=== PATIENT | female | born 1945 | race African-American/Black ===

== ENCOUNTER 2021-08-16 17:49 | Observation (INO) | payer OTHER ==
[2021-08-16] MEDS ORDERED: Ringers Lactate 1,000 ML IV ONE (18:30)
[2021-08-16 18:32] LABS: Absolute Lymphocytes (CBC) 0.9 K/uL (0.7-4.9); Hematocrit 38.6 % (36.0-45.0); Lymphocytes % 13.5 % (15.3-44.8); MPV 10.6 fL (7.6-11.3); RBC Red Blood Cell Count 4.16 M/uL (3.86-4.86)
[2021-08-16 18:45] LABS: Potassium 4.3 mmol/L (3.5-5.1)
--- NOTE | 2021-08-16 18:58 | EDPHYS ---
Physician Documentation [facility] Name: Linda Leone Age: 75 yrs Sex: Female : 1945 Arrival Date: 08/16/2021 Time: 17:54 Bed 7 Private MD: ED Physician Wilian Shafer HPI: 08/16 18:06 This 75 yrs old Black Female presents to ER via Unassigned with complaints of Low Blood ms3 Sugar. 18:06 The patient or guardian reports hypoglycemia, that was potentially precipitated by Fall ms3 out of bed last night. Onset: The symptoms/episode began/occurred acutely, last night. Associated signs and symptoms: Pertinent negatives: decreased urine output, diaphoresis, nausea, urinary incontinence, vomiting. 75-year-old female presents via [facility] for hypoglycemia. EMS states on their arrival patient's glucose was 47 and EP no pharyngeal exam which was made an oral glucose was administered. Patient's glucose remained in the 40s and the decision was made to transport patient to the hospital. Patient states she fell out of bed last night and was unable to get up today. Patient denies loss of consciousness or striking her head. Patient denies pain at this time. Patient denies alleviating or inciting factors.. Historical: - Allergies: 18:10 No Known Allergies; vg1 - Home Meds: 18:10 Metformin Oral [Active]; Levemir [Active]; vg1 - PMHx: 18:10 Diabetes mellitus; Hypertensive disorder; vg1 - Immunization history:: Client reports receiving the 2nd dose of the Covid vaccine. - Social history:: Smoking status: Patient denies any tobacco usage or history of. ROS: 18:06 Constitutional: Negative for fever, and chills. ENT: Negative for injury, pain, and ms3 discharge, Neck: Negative for injury, pain, and swelling, Cardiovascular: Negative for chest pain, and palpitations. Respiratory: Negative for shortness of breath, cough, wheezing, and pleuritic chest pain, Abdomen/GI: Negative for abdominal pain, nausea, vomiting, diarrhea, and constipation, Back: Negative for injury and pain, : Negative for injury, bleeding, discharge, and swelling, Skin: Negative for injury, rash, and discoloration, Neuro: Negative for headache, weakness, numbness, tingling. Allergy/Immunology: Negative for hives, rash, and allergies, Hematologic/Lymphatic: Negative for swollen nodes, abnormal bleeding, and unusual bruising. Exam: 18:06 Constitutional: This is a well developed, well nourished patient who is awake, alert, ms3 and in no acute distress. Head/Face: Normocephalic, atraumatic. Eyes: Pupils equal round and reactive to light, extra-ocular motions intact. Lids and lashes normal. Conjunctiva and sclera are non-icteric and not injected. Periorbital areas with no swelling, redness, or edema. Neck: Trachea midline, no cervical lymphadenopathy. Supple, full range of motion without nuchal rigidity, or vertebral point tenderness. No Meningismus. Chest/axilla: Normal chest wall appearance and motion. Nontender with no deformity. Respiratory: Lungs have equal breath sounds bilaterally, clear to auscultation and percussion. No rales, rhonchi or wheezes noted. No increased work of breathing, no retractions or nasal flaring. Abdomen/GI: Soft, non-tender, with normal bowel sounds. No distension or tympany. No guarding or rebound. No evidence of tenderness throughout. 18:06 Cardiovascular: Rate: tachycardic, Rhythm: regular, Heart sounds: normal. Vital Signs: 17:42 BP 147 / 102; Pulse 93; Resp 20; Temp 97.6; Pulse Ox 97% on R/A; Weight 49.9 kg; Height vg1 5 ft. 0 in. (152.40 cm); Pain 0/10; 18:20 BP 141 / 96; Pulse 90; Resp 18; Pulse Ox 98% ; vg1 19:30 BP 142 / 111; Pulse 96; Resp 19 S; Pulse Ox 100% on R/A; as6 21:30 BP 126 / 86; Pulse 93; Pulse Ox 100% on R/A; ll3 22:30 BP 118 / 76; Pulse 87; Pulse Ox 100% on R/A; ll3 17:42 Body Mass Index 21.48 (49.90 kg, 152.40 cm) vg1 MDM: 18:05 Patient medically screened. ms3 18:12 ED course: Patient declines CT scan of head and neck. Denies head pain, LOC, or ms3 striking her head. Declines CT Cervical spine- denies neck pain.. 18:55 Differential diagnosis: hypoglycemic episode, Fall, Electrolyte abnormality. Data ms3 reviewed: vital signs, nurses notes, lab test result(s). Counseling: I had a detailed discussion with the patient and/or guardian regarding: the historical points, exam findings, and any diagnostic results supporting the discharge/admit diagnosis, lab results, to return to the emergency department if symptoms worsen or persist or if there are any questions or concerns that arise at home. ED course: Patient states that she would like to be discharged at this time. Discussed with patient need to follow-up with her primary care physician. Patient understands agrees with plan. All questions were answered. Return precautions discussed include worsening symptoms, or any other concerns.. 19:13 ED course: Discussed case with [employer] Letty and she accepts patient as observation. ms3 Discussed plan with patient. Patient understands/ agrees with plan.. 08/16 18:05 Order name: CK; Complete Time: 18:54 ms3 08/16 18:05 Order name: BMP; Complete Time: 18:54 ms3 08/16 18:05 Order name: CBC with Diff; Complete Time: 18:45 ms3 08/16 18:08 Order name: SARS-COV-2 RT PCR (Document "Date of Onset" if Symptomatic); Complete Time: em1 19:19 08/16 19:19 Interpretation: SARSCOV2 RT PCR NEGATIVE. ms3 08/16 18:15 Order name: Glucose, Ancillary Testing; Complete Time: 18:45 EDMS 08/16 19:11 Order name: Glucose, Ancillary Testing; Complete Time: 19:19 EDMS 08/16 21:04 Interpretation: GLUC,ANCIL 81. sb3 Administered Medications: 18:37 Drug: Lactated Ringers Solution 1000 ml Route: IV; Rate: 1000 ml/hr; Site: right ap3 antecubital; Point of Care Testing: Blood Glucose: 19:02 Blood Glucose: 81 mg/dL; aa5 Ranges: Critical Glucose Levels:Adult <50 mg/dl or >400 mg/dl <40 mg/dl or >180 mg/dl Disposition Summary: 08/16/21 19:11 Hospitalization Ordered Hospitalization Status: Observation ms3 Provider: Tu Gutierrez ms3 Condition: Stable(08/16/21 19:11) ms3 Problem: new ms3 Symptoms: have improved ms3 Bed/Room Type: Standard ms3 [facility]08/16/21 21:04) mw Room Assignment: 270-(08/16/21 21:04) mw Diagnosis - Hypoglycemia, unspecified(08/16/21 19:11) ms3 - Essential (primary) hypertension(08/16/21 19:11) ms3 - Fall from bed, initial encounter(08/16/21 19:11) ms3 Forms: - Medication Reconciliation Form ms3 - SBAR form ms3 Signatures: Dispatcher [employer] EDMS María Murray RN RN Shonna Eden RN RN [email or web address] Sun Perez RN RN vg1 Wilian Shafer DO DO ms3 Faye Alston PA PA sb3 Corrections: (The following items were deleted from the chart) 18:11 18:10 PMHx: History of urinary tract infection; vg1 vg1 19:08 18:57 Home ms3 ms3 19:08 18:57 Stable ms3 ms3 19:08 18:57 Hypoglycemia, unspecified ms3 ms3 19:08 18:57 Fall from bed, initial encounter ms3 ms3 19:08 18:57 Essential (primary) hypertension ms3 ms3 21:04 19:11 Telemetry/MedSurg (observation) ms3 mw 21:04 19:11 ms3 mw
--- NOTE | 2021-08-16 18:58 | ER ---
Nurse's Notes [facility] Name: Linda Leone Age: 75 yrs Sex: Female : 1945 Arrival Date: 08/16/2021 Time: 17:54 Bed 7 Private MD: Diagnosis: Hypoglycemia, unspecified;Essential (primary) hypertension;Fall from bed, initial encounter Presentation: 08/16 17:42 Chief complaint: EMS states: Fell out of bed last night; neighbors were concerned of vg1 not being able to get a hold of pt so called PD; PD went to pt home and found pt on bedroom floor; EMS checked BG, results of 47, gave pt peanutbutter and jelly sandwich, pt took one bit and ate one cracker and was given half of oral glucose. No change in BG. 17:42 Coronavirus screen: Vaccine status: Patient reports receiving the 2nd dose of the covid vg1 vaccine. Client denies travel out of the [place] in the last 14 days. Ebola Screen: Patient negative for fever greater than or equal to 101.5 degrees Fahrenheit, and additional compatible Ebola Virus Disease symptoms. Initial Sepsis Screen: Does the patient meet any 2 criteria? No. Patient's initial sepsis screen is negative. Does the patient have a suspected source of infection? No. Patient's initial sepsis screen is negative. Risk Assessment: Do you want to hurt yourself or someone else? Patient reports no desire to harm self or others. Onset of symptoms was August 16, 2021. 17:42 Method Of Arrival: EMS: [facility] 17:42 Acuity: KAM 3 vg1 Triage Assessment: 17:42 General: Appears in no apparent distress. comfortable, Behavior is calm, cooperative. vg1 Pain: Denies pain. EENT: No signs and/or symptoms were reported regarding the EENT system. Neuro: Level of Consciousness is awake, alert, obeys commands, Oriented to person, place, time, situation. Cardiovascular: Patient's skin is warm and dry. Respiratory: Airway is patent Respiratory effort is even, unlabored. GI: No signs and/or symptoms were reported involving the gastrointestinal system. : No signs and/or symptoms were reported regarding the genitourinary system. Derm: Skin is intact, is healthy with good turgor. Musculoskeletal: Circulation, motion, and sensation intact. Historical: - Allergies: 18:10 No Known Allergies; vg1 - Home Meds: 18:10 Metformin Oral [Active]; Levemir [Active]; vg1 - PMHx: 18:10 Diabetes mellitus; Hypertensive disorder; vg1 - Immunization history:: Client reports receiving the 2nd dose of the Covid vaccine. - Social history:: Smoking status: Patient denies any tobacco usage or history of. Screenin:45 Abuse screen: Denies threats or abuse. Nutritional screening: No deficits noted. vg1 Tuberculosis screening: No symptoms or risk factors identified. Fall Risk Fall in past 12 months (25 points). No secondary diagnosis (0 pts). IV access (20 points). Ambulatory Aid- None/Bed Rest/Nurse Assist (0 pts). Gait- Normal/Bed Rest/Wheelchair (0 pts) Mental Status- Oriented to own ability (0 pts). Total Raphael Fall Scale indicates High Risk Score (45 or more points). Fall prevention measures have been instituted. Side Rails Up X 2 Placed Close to Nursing Station. Assessment: 17:45 Reassessment: SEE TRIAGE. vg1 19:28 General: Appears in no apparent distress. Behavior is calm, cooperative. General: pt as6 has no complaint or concerns at this time. pt able to ambulate to bedside commode with minimal assistance. pt denies pain "I feel totally normal right now. I feel fine" . Neuro: Denies weakness dizziness. 22:41 Reassessment: Patient and/or family updated on plan of care and expected duration. Pain ll3 level reassessed. Patient is alert, oriented x 3, equal unlabored respirations, skin warm/dry/pink. Patient denies pain at this time. Vital Signs: 17:42 BP 147 / 102; Pulse 93; Resp 20; Temp 97.6; Pulse Ox 97% on R/A; Weight 49.9 kg; Height vg1 5 ft. 0 in. (152.40 cm); Pain 0/10; 18:20 BP 141 / 96; Pulse 90; Resp 18; Pulse Ox 98% ; vg1 19:30 BP 142 / 111; Pulse 96; Resp 19 S; Pulse Ox 100% on R/A; as6 21:30 BP 126 / 86; Pulse 93; Pulse Ox 100% on R/A; ll3 22:30 BP 118 / 76; Pulse 87; Pulse Ox 100% on R/A; ll3 17:42 Body Mass Index 21.48 (49.90 kg, 152.40 cm) vg1 ED Course: 17:42 Arm band placed on. vg1 17:45 Patient has correct armband on for positive identification. Placed in gown. Bed in low vg1 position. Call light in reach. Side rails up X2. 17:50 Inserted saline lock: 22 gauge in right antecubital area, using aseptic technique. vg1 ,using aseptic technique. completed by Shonna WINN Blood collected. 17:54 Patient arrived in ED. vg1 17:58 Wilian Shafer DO is Attending Physician. ms3 18:04 Sun Perez, PA is Primary Nurse. vg1 18:10 Triage completed. vg1 19:07 Primary Nurse role handed off by Sun Perez RN cs9 19:08 Domingo Cordoba, PA is Primary Nurse. as6 19:09 Tu Gutierrez is Hospitalizing Provider. ms3 19:59 Assisted to bedside commode. as6 22:41 No provider procedures requiring assistance completed. Patient admitted, IV remains in ll3 place. No redness/swelling at site. Administered Medications: 18:37 Drug: Lactated Ringers Solution 1000 ml Route: IV; Rate: 1000 ml/hr; Site: right ap3 antecubital; Point of Care Testing: Blood Glucose: 19:02 Blood Glucose: 81 mg/dL; aa5 Ranges: Outcome: 18:57 Discharge ordered by MD. ms3 19:11 Decision to Hospitalize by Provider. ms3 22:41 Admitted to L \\T\\ D, accompanied by tech, via wheelchair, room 201, with chart, Report ll3 called to Receiving nurse 22:41 Condition: stable 22:41 Discharge instructions given to patient, Instructed on the need for admit, Demonstrated understanding of instructions. 22:42 Patient left the ED. ll3 Signatures: Nancy Hernandez RN RN aa5 Shonna Eden RN RN ap3 Sun Perez RN RN vg1 Wilian Shafer DO DO ms3 Mary Lou Ocampo cs9 Domingo Cordoba RN RN as6 Gabriela Fonseca RN RN ll3 Corrections: (The following items were deleted from the chart) 18:11 18:10 PMHx: History of urinary tract infection; vg1 vg1
--- NOTE | 2021-08-16 20:27 | P.HP ---
Certification for Inpatient Patient admitted to: Observation With expected LOS: <2 Midnights Patient will require the following post-hospital care: None Practitioner: I am a practitioner with admitting privileges, knowledge of patient current condition, hospital course, and medical plan of care. Services: Services provided to patient in accordance with Admission requirements found in Title 42 Section 412.3 of the Code of Federal Regulations Patient History Date of Service: 08/16/21 Reason for admission: Hypoglycemia History of Present Illness: Patient is a 68 type II diabetic insulin-dependent who presented to the ED via [facility] for hypoglycemia. EMS states on their arrival patient's glucose was 47 and they gave her peanut butter and jelly sandwich and oral glucose. Patient's glucose remained in the 40s and the decision was made to transport patient to the hospital. Patient states she was starting to feel very weak and could not get out of bed so she held a pillow beneath her self and rolled out of bed onto the floor. However she was unable to get up. Neighbors got concerned and called EMS. Patient denies loss of consciousness or striking her head. Patient reports that her blood sugars usually in the 100s. She reports she took her medication as usual last night and ate as she usually does. Upon arrival to the ED, patient's glucose was in the 80s. They gave patient food and juice. Her blood sugar went up to 99. They were planning to discharge her but checked her sugar one more time and was back in the 80s. All the labs were unremarkable. Patient denies any pain at this time ED provider wishes to admit patient for further observation and treatment of hypoglycemia. Home medications list reviewed: Yes - Past Medical/Surgical History Diabetic: Yes -: Type 2 Diabetes Mellitus- Insulin Dependent -: Primary Hypertension -: Hysterectomy Psychosocial/ Personal History: Patient lives at home by herself. - Family History Family History: Reviewed- Non-Contributory - Social History Smoking Status: Former smoker Alcohol use: No CD- Drugs: No Place of Residence: Home Review of Systems 10-point ROS is otherwise unremarkable General: Weakness Physical Examination - Physical Exam General: Alert, In no apparent distress HEENT: Atraumatic, PERRLA, EOMI, Sclerae nonicteric Neck: Supple, 2+ carotid pulse no bruit, No LAD, Without JVD or thyroid abnormality Respiratory: Clear to auscultation bilaterally, Normal air movement Cardiovascular: Regular rate/rhythm, Normal S1 S2 Gastrointestinal: Normal bowel sounds, No tenderness Musculoskeletal: No tenderness Integumentary: No rashes Neurological: Normal speech, Normal strength at 5/5 x4 extr, Normal tone, Normal affect - Studies Laboratory Data (last 24 hrs) 08/16/21 17:50: WBC 7.00, Hgb 12.6, Hct 38.6, Plt Count 216 08/16/21 17:50: Sodium 141, Potassium 4.3, BUN 14, Creatinine 0.87, Glucose 99 Assessment and Plan - Problems (Diagnosis) (1) Hypoglycemia associated with type 2 diabetes mellitus Current Visit: Yes Status: Acute (2) Diabetes mellitus type 2, insulin dependent Current Visit: Yes Status: Chronic (3) Hypertension Current Visit: Yes Status: Chronic Qualifiers: Hypertension type: primary hypertension Qualified Code(s): I10 - Essential (primary) hypertension - Plan -Patient reports taking Metformin and Levemir daily and typical blood sugars for her are in the 170s. -Patient's blood sugar has increased slowly throughout her stay in the ED. We will continue to monitor. -We will check sugar every 6 hours with a mild sliding scale as necessary -We will encourage patient to eat. -Patient denies any other chronic health problems or any pain at this time. DVT PPx: Lovenox Code: Full Discharge Plan: Home Plan to discharge in: 24 Hours - Advance Directives Does patient have a Living Will: No Does patient have a Durable POA for Healthcare: No - Code Status/Comfort Care Code Status Assessed: Yes (Full) Critical Care: No Time Spent Managing Pts Care (In Minutes): 70
[2021-08-16 22:56] VITALS: O2SAT 100
[2021-08-17] MEDS: INSULIN -REGULAR HUMAN 50 UNIT/0.5 ML ML SQ SCH ×3 (04:37→11:30)
[2021-08-17] MEDS ORDERED: ACETAMINOPHEN 500 MG TAB PO PRN (04:37)
[2021-08-17] MEDS ORDERED: ONDANSETRON 4 MG/2 ML VIAL IV PRN (04:37)
[2021-08-17] MEDS ORDERED: SIMETHICONE 125 MG TAB PO PRN (04:37)
[2021-08-17 05:38] LABS: Albumin 3.5 g/dL (3.4-5.0); Bilirubin Total 0.2 mg/dL (0.2-1.0); Potassium 4.1 mmol/L (3.5-5.1); Protein, Total 7.6 g/dL (6.4-8.2); Thyroid Stimulating Hormone 1.39 uIU/mL (0.360-3.740)
[2021-08-17] MEDS ORDERED: METFORMIN HCL 500 MG TAB PO SCH (08:00)
[2021-08-17] MEDS ORDERED: INSULIN GLARGINE 100 UNIT/ML SQ SCH (09:00)
[2021-08-17] MEDS ORDERED: ENOXAPARIN 40 MG/0.4 ML SQ SCH (09:00)
--- NOTE | 2021-08-17 09:13 | P.DS ---
Admission Date: 08/16/21 Discharge Date: 08/17/21 Disposition: DC HOME/HOME HEALTH CARE Discharge Condition: FAIR Reason for Admission: Hypoglycemia - Problems (1) Hypoglycemia associated with type 2 diabetes mellitus Status: Acute (2) Hypertension Status: Chronic Qualifiers: Hypertension type: primary hypertension Qualified Code(s): I10 - Essential (primary) hypertension Brief History of Present Illness: Patient is a 68 type II diabetic insulin-dependent who presented to the ED via [facility] for hypoglycemia. Patient reported to be hypoglycemic with a glucose of 47and they gave her peanut butter and jelly sandwich and oral glucose. Patient's glucose remained in the 40s and the decision was made to transport patient to the hospital. Patient was unable to get up from bed due to weakness. Neighbors got concerned and called EMS. Patient denied loss of consciousness. Patient reports that her blood sugars usually in the 100s. She reports she took her medication as usual the night before and ate as she usually does. Upon arrival to the ED, patient's glucose was in the 80s. They gave patient food and juice. Her blood sugar went up to 99. They were planning to discharge her but checked her sugar one more time and was back in the 80s. All the labs were unremarkable. She was admitted for further observation and treatment of hypoglycemia. Hospital Course: Patient placed under observation fingerstick glucose monitoring. Her blood sugar was stable during the hospital stay. Patient is eating well and currently asymptomatic. She has been ambulatory. Vitals are stable, patient is stable for discharge. She was informed not to give herself insulin until her blood sugar is greater than 200. Her insulin dose has also been decreased to half. Metformin is continued on discharge. Vital Signs/Physical Exam: Temp Pulse Resp BP Pulse Ox 97.8 F 80 17 127/65 96 08/17/21 08:00 08/17/21 08:00 08/17/21 08:00 08/17/21 08:00 08/17/21 08:00 General: Alert, In no apparent distress, Oriented x3 HEENT: Mucous membr. moist/pink Neck: Supple, JVD not distended Respiratory: Clear to auscultation bilaterally, Normal air movement Cardiovascular: No edema, Regular rate/rhythm, Normal S1 S2 Gastrointestinal: Soft and benign, Non-distended, No tenderness Musculoskeletal: No swelling Integumentary: No rashes, No erythema Neurological: Normal speech, Normal strength at 5/5 x4 extr, Cranial nerves 3-12 intact Laboratory Data at Discharge: WBC 7.00 K/uL (4.3-10.9) 08/16/21 17:50 Hgb 12.6 g/dL (12.0-15.0) 08/16/21 17:50 Hct 38.6 % (36.0-45.0) 08/16/21 17:50 Plt Count 216 K/uL (152-406) 08/16/21 17:50 Sodium 141 mmol/L (136-145) 08/17/21 04:52 Potassium 4.1 mmol/L (3.5-5.1) 08/17/21 04:52 BUN 13 mg/dL (7-18) 08/17/21 04:52 Creatinine 0.84 mg/dL (0.55-1.3) 08/17/21 04:52 Glucose 95 mg/dL (74-106) 08/17/21 04:52 Total Bilirubin 0.2 mg/dL (0.2-1.0) 08/17/21 04:52 AST 13 U/L (15-37) L 08/17/21 04:52 ALT 13 U/L (12-78) 08/17/21 04:52 Alkaline Phosphatase 76 U/L (45-117) 08/17/21 04:52 Triglycerides 146 mg/dL (<150) 08/17/21 04:52 Cholesterol 188 mg/dL (<200) 08/17/21 04:52 HDL Cholesterol 65 mg/dL (40-60) H 08/17/21 04:52 Cholesterol/HDL Ratio 2.89 08/17/21 04:52 Home Medications: Insulin Detemir [Levemir Flextouch] 35 unit SQ DAILY #10 ml 08/17/21 Metformin HCl [Glucophage*] 500 mg PO BIDWM 08/17/21 Pravastatin [Pravachol*] 40 mg PO BEDTIME 08/17/21 New Medications: Insulin Detemir [Levemir Flextouch] 35 unit SQ DAILY #10 ml Physician Discharge Instructions: Please check your blood sugar every morning. Do not take insulin until your blood sugar is greater than 200 and take half of your insulin dose for now. Diet: ADA Activity: Fall precautions Followup: NONE,NONE [Primary Care Provider] - 2-3 Days
[2021-08-17 14:04] VITALS: BP 141/73; TEMP 98.5
== END 2021-08-17 14:55 | disposition home or self-care (01) ==
LOC: ER 17:49 → ERHOLD 19:56 → INTOOBSV 19:56 → 2ND-WC 21:51
PROVIDERS: ADMIT Internal Medicine; ATTEND Internal Medicine
DX: E11.649 Type 2 diabetes mellitus with hypoglycemia without coma (principal); I10 Essential (primary) hypertension; Z79.4 Long term (current) use of insulin; Z87.891 Personal history of nicotine dependence; Z20.822 Contact with and (suspected) exposure to COVID-19
CPT/HCPCS: 36415; 80048; 80053; 80061; 82550; 82947; 83036; 84439; 84443; 85025; 99285; G0378; J1650; J7120; U0003

== ENCOUNTER 2021-08-19 14:45 | Inpatient (IN) | payer OTHER ==
[2021-08-19] MEDS ORDERED: D10W 250 ML IV ONE (15:56)
[2021-08-19 16:13] LABS: Absolute Lymphocytes (CBC) 0.9 K/uL (0.7-4.9); Hematocrit 35.5 % (36.0-45.0); Lymphocytes % 12.9 % (15.3-44.8); MPV 10.1 fL (7.6-11.3)
[2021-08-19 16:29] LABS: ALT/SGPT 18 U/L (12-78); AST/SGOT 19 U/L (15-37); Albumin 3.7 g/dL (3.4-5.0); Alkaline Phosphatase 74 U/L (45-117); BUN Blood Urea Nitrogen 15 mg/dL (7-18); Bicarbonate 30 mmol/L (21-32); Bilirubin Direct < 0.1 mg/dL (0-0.2); Bilirubin Total 0.3 mg/dL (0.2-1.0); Glucose Level 92 mg/dL (74-106); Potassium 3.8 mmol/L (3.5-5.1); Protein, Total 8.1 g/dL (6.4-8.2); Sodium Level 141 mmol/L (136-145)
--- NOTE | 2021-08-19 17:19 | RAD REPORT ---
EXAM DESCRIPTION: RAD - Chest Single View - 08/19/2021 4:53 pm CLINICAL HISTORY: weakness COMPARISON: No comparisons FINDINGS: Lines: None. Lungs: No evidence of edema or pneumonia. Pleural: No significant pleural effusions or pneumothorax. Cardiac: The heart size is within normal limits. Bones: No acute fractures. Other: IMPRESSION: No acute cardiopulmonary disease.
--- NOTE | 2021-08-19 17:33 | EDPHYS ---
Physician Documentation [facility] Name: Linda Leone Age: 75 yrs Sex: Female : 1945 Arrival Date: 08/19/2021 Time: 14:46 Bed 3 Private MD: ED Physician Artemio Minor HPI: 08/19 15:06 This 75 yrs old Black Female presents to ER via EMS with complaints of Altered Mental jmm Status, Low Blood Sugar. 15:06 The patient presents with confusion, decreased mental status, slurred speech. Onset: jmm The symptoms/episode began/occurred today. Possible causes: low blood sugar, the patient uses insulin, the patient takes and oral hypoglycemic. Associated signs and symptoms: Pertinent negatives: abdominal pain, chest pain, shortness of breath. Current symptoms: In the emergency department the patient's symptoms have improved, mildly, is more alert, is less confused. Patient's baseline: Neuro: alert and fully oriented, Motor: no deficits. This is a 75 year old female with a history of dm, htn that presents to the ED with confusion, slurred speech. BGL low at home. Takes insulin and metoformin. . Historical: - Allergies: 14:49 No Known Allergies; ll1 - Home Meds: 15:23 levemir 35 unit daily [Active]; metformin 500 mg oral TG24 2 times per day [Active]; jl7 pravastatin 40 mg oral tab 1 tab once daily [Active]; - PMHx: 14:49 diabetes mellitus; Hypertensive disorder; ll1 - Immunization history:: Client reports receiving the 2nd dose of the Covid vaccine. - Social history:: Smoking status: Patient denies any tobacco usage or history of. ROS: 15:06 Constitutional: Negative for fever, chills, and weight loss, Cardiovascular: Negative jmm for chest pain, palpitations, and edema, Respiratory: Negative for shortness of breath, cough, wheezing, and pleuritic chest pain. 15:06 Neuro: Positive for weakness. 15:06 All other systems are negative. Exam: 15:06 Head/Face: atraumatic. Eyes: EOMI, no conjunctival erythema appreciated ENT: Moist jmm Mucus Membranes Neck: Trachea midline, Supple Chest/axilla: Normal chest wall appearance and motion. Cardiovascular: Regular rate and rhythm. No edema appreciated Respiratory: Normal respirations, no respiratory distress appreciated Abdomen/GI: Non distended, soft Back: Normal ROM Skin: General appearance color normal 15:06 Constitutional: The patient appears in no acute distress, alert, awake. 15:06 Musculoskeletal/extremity: ROM: intact in all extremities. 15:06 Skin: Appearance: Color: normal in color. 15:06 Neuro: Cranial nerves: Speech is slurred, Motor: is normal. 15:06 Psych: Behavior/mood is pleasant, cooperative. Vital Signs: 15:20 BP 195 / 97; Pulse 86; Resp 15; Temp 97.8; Pulse Ox 100% on R/A; jl7 15:23 BP 161 / 101; Pulse 81; Resp 15; Pulse Ox 100% ; jl7 15:50 Weight 45.36 kg (R); Height 5 ft. 2 in. (157.48 cm); jl7 16:15 BP 138 / 81; Pulse 84; Resp 16; Pulse Ox 100% ; jl7 17:00 BP 146 / 124; Pulse 79; Resp 17; Pulse Ox 100% ; jl7 19:00 BP 146 / 113; Pulse 108; Resp 15; Pulse Ox 100% ; jl7 20:44 BP 131 / 88; Pulse 99; Resp 16; Pulse Ox 100% on R/A; 5 15:50 Body Mass Index 18.29 (45.36 kg, 157.48 cm) jl7 19:00 pt moving jl7 MDM: 15:15 Patient medically screened. [facility] 17:31 Data reviewed: vital signs, nurses notes. Counseling: I had a detailed discussion with natalia the patient and/or guardian regarding: the historical points, exam findings, and any diagnostic results supporting the discharge/admit diagnosis, lab results, the need for further work-up and treatment in the hospital. 08/19 15:06 Order name: Glucose, Ancillary Testing; Complete Time: 15:07 [facility] 08/19 15:25 Order name: Glucose, Ancillary Testing; Complete Time: 15:31 [facility] 08/19 15:37 Order name: Basic Metabolic Panel; Complete Time: 16:34 [facility] 08/19 15:37 Order name: CBC with Diff; Complete Time: 16:15 [facility] 08/19 15:37 Order name: LFT's; Complete Time: 16:34 [facility] 08/19 15:37 Order name: Troponin HS; Complete Time: 16:34 [facility] 08/19 15:37 Order name: XRAY Chest (1 view); Complete Time: 17:22 [facility] 08/19 15:37 Order name: EKG; Complete Time: 15:38 [facility] 08/19 17:28 Order name: Glucose, Ancillary Testing; Complete Time: 17:29 [facility] 08/19 17:50 Order name: SARS-COV-2 RT PCR (Document "Date of Onset" if Symptomatic); Complete Time: [facility] 19:53 08/19 18:03 Order name: Urine Dipstick-Ancillary; Complete Time: 18:03 [facility] 08/19 18:51 Order name: Glucose, Ancillary Testing; Complete Time: 19:05 [facility] 08/19 20:32 Order name: Glucose, Ancillary Testing; Complete Time: 20:58 [facility] 08/19 15:37 Order name: Cardiac monitoring; Complete Time: 15:45 [facility] 08/19 15:37 Order name: EKG - Nurse/Tech; Complete Time: 15:45 [facility] 08/19 15:37 Order name: IV Saline Lock; Complete Time: 15:45 [facility] 08/19 15:37 Order name: Labs collected and sent; Complete Time: 16:10 [facility] 08/19 15:37 Order name: O2 Per Protocol; Complete Time: 15:45 [facility] 08/19 15:37 Order name: O2 Sat Monitoring; Complete Time: 15:46 [facility] 08/19 16:54 Order name: Urine Dipstick-Ancillary (obtain specimen); Complete Time: 19:21 [facility] 08/19 19:28 Order name: Social Service Consult EDOK Administered Medications: 17:25 Drug: D10 in Water [2 mL/kg] 2 ml/kg Route: IVP; Site: left forearm; jl7 17:45 Follow up: Response: No adverse reaction; Blood sugar is elevated jl7 Disposition Summary: 08/19/21 17:32 Hospitalization Ordered Hospitalization Status: Observation [facility] Provider: Tu Gutierrez Location: Telemetry/MedSur (observation) jmm Condition: Stable jmm Problem: an acute exacerbation jmm Symptoms: have improved jmm Bed/Room Type: Standard [facility] Room Assignment: [facility](08/19/21 20:14) Diagnosis - Altered mental status, unspecified jmm - Hypoglycemia, unspecified jmm Forms: - Medication Reconciliation Form jmm - SBAR form natalia Signatures: Dispatcher [employer] María Moon RN RN Artemio Hatch MD MD cha Mickail, Joel, PA PA jmm Leal, Jahala, RN RN jl7 Cristóbal Leone RN RN ll1 Corrections: (The following items were deleted from the chart) 20:14 17:32 natalia troncoso
--- NOTE | 2021-08-19 17:33 | ER ---
Nurse's Notes [facility] Name: Linda Leone Age: 75 yrs Sex: Female : 1945 Arrival Date: 08/19/2021 Time: 14:46 Bed 3 Private MD: Diagnosis: Altered mental status, unspecified;Hypoglycemia, unspecified Presentation: 08/19 14:47 Chief complaint: Patient states: Found unresponsive on scene. Initial fingerstick 24, ll1 given 20 GM of D10 IV. Last fingerstick 154. Slowly becoming more awake now. EMS states: 20 G R FA , VSS. Last seen well and normal at 10:45 AM. Ebola Screen: Patient denies travel to an Ebola-affected area in the 21 days before illness onset. Initial Sepsis Screen: Does the patient meet any 2 criteria? No. Patient's initial sepsis screen is negative. Does the patient have a suspected source of infection? No. Patient's initial sepsis screen is negative. Risk Assessment: Do you want to hurt yourself or someone else? Patient reports no desire to harm self or others. Onset of symptoms was August 19, 2021. 14:47 Method Of Arrival: EMS ll1 14:47 Acuity: KAM 2 ll1 15:20 Coronavirus screen: At this time, the client does not indicate any symptoms associated jl7 with coronavirus-19. Triage Assessment: 14:50 General: Appears distressed, uncomfortable, Behavior is cooperative. Pain: Denies pain. jl7 Neuro: Level of Consciousness is awake, alert, confused, Oriented to person. Cardiovascular: Patient's skin is warm and dry. Respiratory: Airway is patent Respiratory effort is even, unlabored, Respiratory pattern is regular, symmetrical. Derm: Skin is dry, Skin is normal, Skin temperature is cool. Historical: - Allergies: 14:49 No Known Allergies; ll1 - Home Meds: 15:23 levemir 35 unit daily [Active]; metformin 500 mg oral TG24 2 times per day [Active]; jl7 pravastatin 40 mg oral tab 1 tab once daily [Active]; - PMHx: 14:49 diabetes mellitus; Hypertensive disorder; ll1 - Immunization history:: Client reports receiving the 2nd dose of the Covid vaccine. - Social history:: Smoking status: Patient denies any tobacco usage or history of. Screenin:23 Abuse screen: unable to obtain. Nutritional screening: unable to obtain. Tuberculosis jl7 screening: No symptoms or risk factors identified. Fall Risk No fall in past 12 months (0 pts). No secondary diagnosis (0 pts). IV access (20 points). Ambulatory Aid- None/Bed Rest/Nurse Assist (0 pts). Gait- Weak (10 pts.). Mental Status- Overestimates/Forgets Limitations (15 pts.). Total Raphael Fall Scale indicates High Risk Score (45 or more points). Fall prevention measures have been instituted. Side Rails Up X 2 Placed Close to Nursing Station Frequent Obs/Assessments Occuring Family Present and informed to notify staff if the need to leave the bedside As available patient and family educated on Fall Prevention Program and Strategies. Assessment: 15:00 General: See triage. jl7 15:25 Reassessment: Pt BGL 65, CARLTON Stevenson notified, VO to finish D10 infusion from EMS, 100 mL jl7 left in bag., Infusion restarted as ordered. 16:45 Reassessment: BGL 92, Pt oriented to self and place, VO to have pt eat, pt provided jl7 with glucerna. 17:30 Reassessment: BGL 53, D10 administered and pt fed applesauce, and sandwhich with some jl7 applejuice. 18:00 Reassessment: Bridger Salazar, . jl7 18:50 Reassessment: BGL 115. jl7 19:20 Reassessment: attempted to call report to floor nurse, nurse unavailable. [facility] Vital Signs: 15:20 BP 195 / 97; Pulse 86; Resp 15; Temp 97.8; Pulse Ox 100% on R/A; jl7 15:23 BP 161 / 101; Pulse 81; Resp 15; Pulse Ox 100% ; jl7 15:50 Weight 45.36 kg (R); Height 5 ft. 2 in. (157.48 cm); jl7 16:15 BP 138 / 81; Pulse 84; Resp 16; Pulse Ox 100% ; jl7 17:00 BP 146 / 124; Pulse 79; Resp 17; Pulse Ox 100% ; jl7 19:00 BP 146 / 113; Pulse 108; Resp 15; Pulse Ox 100% ; jl7 20:44 BP 131 / 88; Pulse 99; Resp 16; Pulse Ox 100% on R/A; sm5 15:50 Body Mass Index 18.29 (45.36 kg, 157.48 cm) jl7 19:00 pt moving jl7 ED Course: 14:46 Patient arrived in ED. ll1 14:47 Loulou Garza RN is Primary Nurse. jl7 14:49 Triage completed. ll1 14:49 Arm band placed on Patient placed in an exam room, on a stretcher. ll1 15:00 Maintain EMS IV. Dressing intact. Good blood return noted. Site clean \T\ dry. Gauge \T\ jl 7 site: left ac. 15:07 Graham Bryan PA is PHCP. [facility] 15:07 Artemio Minor MD is Attending Physician. [facility] 15:23 Patient has correct armband on for positive identification. Placed in gown. Bed in low jl7 position. Call light in reach. Side rails up X2. pvc monitor on. Pulse ox on. NIBP on. Warm blanket given. 15:23 EKG done, by ED staff, reviewed by Graham VINCENT. [facility] 15:45 Initial lab(s) drawn, by mn, sent to lab. Inserted saline lock: 20 gauge in left jl7 forearm, using aseptic technique. Blood collected. 16:51 Assisted with bedpan. Cleaned of incontinence. jw7 16:53 XRAY Chest (1 view) In Process Unspecified. EDMS 17:30 Assisted with bedpan. Cleaned of incontinence. jw7 17:32 Tu Gutierrez is Hospitalizing Provider. [facility] 19:14 No provider procedures requiring assistance completed. Patient admitted, IV remains in jl7 place. intact, No redness/swelling at site. 19:15 Report given to PA Wiley. jl7 Administered Medications: 17:25 Drug: D10 in Water [2 mL/kg] 2 ml/kg Route: IVP; Site: left forearm; jl7 17:45 Follow up: Response: No adverse reaction; Blood sugar is elevated [facility] Outcome: 17:32 Decision to Hospitalize by Provider. jmm 20:21 Admitted to Med/surg Report called to attempted to give report to second floor. they kd3 will call back 20:45 Condition: stable 5 20:47 Admitted to Med/surg Report called to leah lopez sm5 21:29 Patient left the ED. sm5 Signatures: Dispatcher [employer] EDMS Graham Bryan PA PA jmm Leal, Jahala RN RN jl7 Cristóbal Leone RN RN ll1 Katelynn An RN RN kd3 Inez Scanlon RN RN sm5 Donna Daniels 7 Corrections: (The following items were deleted from the chart) 14:50 14:47 Chief complaint: Patient states: Found unresponsive on scene. Initial fingerstick ll1 24, given 20 GM of D10 IV. Last fingerstick 154. Slowly becoming more awake now. EMS states: 20 G R FA , VSS. ll1 19:15 19:00 BP 146 / 113; Pulse 108bpm; Resp 15bpm; Pulse Ox 100%; jlAna [email or web address]
[2021-08-19 18:03] LABS: Urine Blood Negative (Negative); Urine Glucose Negative (Negative); Urine Protein Negative (Negative); Urine Specific Gravity <=1.005 (1.005-1.030)
--- NOTE | 2021-08-19 19:20 | P.HP ---
Certification for Inpatient Patient admitted to: Inpatient With expected LOS: <2 Midnights Patient will require the following post-hospital care: Home Health Services Practitioner: I am a practitioner with admitting privileges, knowledge of patient current condition, hospital course, and medical plan of care. Services: Services provided to patient in accordance with Admission requirements found in Title 42 Section 412.3 of the Code of Federal Regulations Patient History Date of Service: 08/19/21 Reason for admission: Hypoglycemia, AMS History of Present Illness: Patient is a 75-year-old black female with type 2 diabetes mellitus and hypertension who presented to the ED via EMS after being found unresponsive. Her blood sugar was found to be 24. EMS gave her 20 units of D10 IV, blood sugar went up to 154, and she became more awake. In the ED she was given D10 in water 2 mL/kg totaling 90 ml and she ate a sandwich and applesauce. Last blood sugar was 115. Other labs are unremarkable. Upon my assessment, patient is oriented to self and place however she states that the year is 1973. Patient was admitted by me a few days ago for hypoglycemia, however she was not as confused. Upon discharge, patient was instructed to take half of her insulin dose and to not take her insulin unless her blood sugar was over 200. When speaking with the patient, she is confused and cannot tell me if she has been checking her blood sugar or how much insulin she has been taking. Patient denies any pain at this time. We will admit patient for further treatment of hypoglycemia and altered mental status. Patient will likely need home health or other service to assist with her medications in the future. Allergies No Known Allergies Allergy (Unverified 08/16/21 23:05) Home medications list reviewed: Yes Home Medications: Insulin Detemir [Levemir Flextouch] 35 unit SQ DAILY #10 ml 08/17/21 Metformin HCl [Glucophage*] 500 mg PO BIDWM 08/17/21 Pravastatin [Pravachol*] 40 mg PO BEDTIME 08/17/21 - Past Medical/Surgical History Diabetic: Yes -: Type 2 Diabetes Mellitus- Insulin Dependent -: Primary Hypertension -: Hysterectomy Psychosocial/ Personal History: Patient lives at home by herself. - Family History Family History: Reviewed- Non-Contributory (Patient reports diabetes runs in her family) - Social History Smoking Status: Former smoker Alcohol use: No CD- Drugs: No Caffeine use: Yes Place of Residence: Home Review of Systems is unable to be obtained Physical Examination - Physical Exam General: Alert, In no apparent distress, Oriented x2, Confused HEENT: Atraumatic, PERRLA, Mucous membr. moist/pink, EOMI, Sclerae nonicteric Neck: Supple, 2+ carotid pulse no bruit, No LAD, Without JVD or thyroid abnormality Respiratory: Clear to auscultation bilaterally, Normal air movement Cardiovascular: Regular rate/rhythm, Normal S1 S2 Gastrointestinal: Normal bowel sounds, No tenderness Musculoskeletal: No tenderness Integumentary: No rashes Neurological: Normal strength at 5/5 x4 extr, Normal tone - Studies Laboratory Data (last 24 hrs) 08/19/21 16:00: WBC 7.30, Hgb 11.5 L, Hct 35.5 L, Plt Count 208 08/19/21 16:00: Sodium 141, Potassium 3.8, BUN 15, Creatinine 0.78, Glucose 92, Total Bilirubin 0.3, AST 19, ALT 18, Alkaline Phosphatase 74 Assessment and Plan - Problems (Diagnosis) (1) Hypoglycemia associated with type 2 diabetes mellitus Current Visit: Yes Status: Acute (2) Altered mental status Current Visit: Yes Status: Acute Qualifiers: Altered mental status type: unspecified Qualified Code(s): R41.82 - Altered mental status, unspecified (3) Diabetes mellitus type 2, insulin dependent Current Visit: Yes Status: Chronic (4) Hypertension Current Visit: Yes Status: Chronic Qualifiers: Hypertension type: primary hypertension Qualified Code(s): I10 - Essential (primary) hypertension - Plan -admit patient to the floor with Accu-Cheks every 4 hours and mild sliding scale insulin. Hypoglycemia protocol in place -Patient will be started on diabetic diet -monitor mental status. confusion Likely will improve with blood sugar -Patient was admitted on August 16 and discharged on August 17 for hypoglycemic episode. Patient was instructed to not take her insulin unless her blood sugar was over 200 and to only take half of her dose of Levemir. Patient will likely need home health or other service to assist her in checking her blood sugar and taking her insulin properly as she does live by herself -Patient was trying to get out of bed upon my assessment. 0.25 mg of Ativan as needed agitation -We will resume home blood pressure medications DVT PPx: Lovenox Code: Full Discharge Plan: Home Plan to discharge in: 48 Hours - Advance Directives Does patient have a Living Will: No Does patient have a Durable POA for Healthcare: No - Code Status/Comfort Care Code Status Assessed: Yes (Full) Critical Care: No Time Spent Managing Pts Care (In Minutes): 70
[2021-08-19] MEDS ORDERED: ACETAMINOPHEN 500 MG TAB PO PRN (21:31)
[2021-08-19] MEDS ORDERED: LORazepam 2 MG/ML VIAL IV PRN (21:31)
[2021-08-19] MEDS ORDERED: ONDANSETRON 4 MG/2 ML VIAL IV PRN (21:31)
[2021-08-19] MEDS: INSULIN -REGULAR HUMAN 50 UNIT/0.5 ML ML SQ SCH (21:31)
[2021-08-20] MEDS ORDERED: D10W 250 ML IV ONE (00:31)
[2021-08-20] MEDS: D5W 1,000 ML IV SCH ×2 (01:45→20:50)
[2021-08-20 05:46] LABS: Absolute Lymphocytes (CBC) 2.5 K/uL (0.7-4.9); Hematocrit 32.4 % (36.0-45.0); Lymphocytes % 33.4 % (15.3-44.8); MPV 9.8 fL (7.6-11.3); RBC Red Blood Cell Count 3.54 M/uL (3.86-4.86)
[2021-08-20 06:12] LABS: ALT/SGPT 16 U/L (12-78); Albumin 3.2 g/dL (3.4-5.0); Alkaline Phosphatase 67 U/L (45-117); BUN Blood Urea Nitrogen 11 mg/dL (7-18); Bicarbonate 29 mmol/L (21-32); Bilirubin Total 0.3 mg/dL (0.2-1.0); Glucose Level 106 mg/dL (74-106); Protein, Total 7.1 g/dL (6.4-8.2); Sodium Level 142 mmol/L (136-145)
[2021-08-20 06:52] LABS: AST/SGOT 20 U/L (15-37); Potassium 3.4 mmol/L (3.5-5.1)
[2021-08-20] MEDS: INSULIN -REGULAR HUMAN 50 UNIT/0.5 ML ML SQ SCH ×4 (07:30→20:48)
[2021-08-20] MEDS: ENOXAPARIN 40 MG/0.4 ML SQ SCH (08:54)
--- NOTE | 2021-08-20 15:13 | P.PN ---
Subjective Date of Service: 08/20/21 Chief Complaint: Hypoglycemia, AMS Patient has been drowsy today, she was difficult to arouse in the morning. Her mental status has improved and now easily arousable but still confused. Blood sugar readings have been above 100 since this morning. Physical Examination - Vital Signs Temperature: 97.0 F Blood Pressure: 147/69 Pulse: 87 Respirations: 16 Pulse Ox (%): 99 - Physical Exam General: In no apparent distress, Confused, Other (Drowsy) HEENT: PERRLA, Mucous membr. moist/pink, EOMI, Sclerae nonicteric Neck: Supple, JVD not distended Respiratory: Clear to auscultation bilaterally, Normal air movement Cardiovascular: Regular rate/rhythm, Normal S1 S2, No murmurs Gastrointestinal: Normal bowel sounds, Soft and benign, Non-distended, No tenderness Musculoskeletal: No swelling, No tenderness Integumentary: No rashes, No cyanosis Neurological: Normal strength at 5/5 x4 extr - Studies Laboratory Data (last 24 hrs) 08/19/21 16:00: WBC 7.30, Hgb 11.5 L, Hct 35.5 L, Plt Count 208 08/19/21 16:00: Sodium 141, Potassium 3.8, BUN 15, Creatinine 0.78, Glucose 92, Total Bilirubin 0.3, AST 19, ALT 18, Alkaline Phosphatase 74 Assessment And Plan - Current Problems (Diagnosis) (1) Metabolic encephalopathy Current Visit: Yes Status: Acute (2) Hypoglycemia associated with type 2 diabetes mellitus Current Visit: Yes Status: Acute (3) Hypertension Current Visit: Yes Status: Chronic Qualifiers: Hypertension type: primary hypertension Qualified Code(s): I10 - Essential (primary) hypertension - Plan Patient's sent mental status is slowly recovered. Hypoglycemia protocol. Continue D5 water. Accu-Cheks. Start feeding once fully awake. Will recommend to stop long-acting insulin. Resume Metformin on discharge. Neurochecks
[2021-08-21 01:47] VITALS: BMI 24.1
[2021-08-21 02:02] VITALS: O2SAT 99
[2021-08-21 05:40] LABS: Absolute Lymphocytes (CBC) 2.6 K/uL (0.7-4.9); Hematocrit 33.5 % (36.0-45.0); Lymphocytes % 49.7 % (15.3-44.8); MPV 10.3 fL (7.6-11.3); RBC Red Blood Cell Count 3.58 M/uL (3.86-4.86)
[2021-08-21 05:57] LABS: Bilirubin Total 0.3 mg/dL (0.2-1.0); Potassium 3.8 mmol/L (3.5-5.1); Protein, Total 6.8 g/dL (6.4-8.2)
[2021-08-21] MEDS: INSULIN -REGULAR HUMAN 50 UNIT/0.5 ML ML SQ SCH (07:30)
[2021-08-21] MEDS: ENOXAPARIN 40 MG/0.4 ML SQ SCH (08:13)
[2021-08-21 09:14] VITALS: BP 119/67; TEMP 97.9
--- NOTE | 2021-08-21 09:35 | P.DS ---
Admission Date: 08/19/21 Discharge Date: 08/21/21 Disposition: ROUTINE DISCHARGE Discharge Condition: GOOD Reason for Admission: Hypoglycemia, AMS Hospital Course: Patient is a 75-year-old -[place] female with a past medical history of type 2 diabetes, currently on insulin, and hypertension. She was admitted after she was brought in by EMS who found the patient unresponsive. Her blood glucose was reportedly 24. She was given D10 which increased her blood pressure in the mid 150s. This is her second admission in 1 week for hypoglycemia. Patient lives alone. Her home medication regimen revealed that she is on Levemir 35 units daily. Her A1c here is 12.8. She has done well throughout her hospitalization without long-acting insulin. We will have to hold off scheduled long-acting insulin upon discharge until she has a good social support such as a home health. Vital Signs/Physical Exam: Temp Pulse Resp BP Pulse Ox 97.9 F 75 16 119/67 99 08/21/21 08:00 08/21/21 08:00 08/21/21 08:00 08/21/21 08:00 08/21/21 08:00 General: Alert, In no apparent distress, Cooperative HEENT: Atraumatic, Normocephalic Respiratory: Clear to auscultation bilaterally, Normal air movement Cardiovascular: Regular rate/rhythm, Normal S1 S2 Musculoskeletal: No clubbing, No swelling, No contractures, No erythema Neurological: Normal speech, Normal affect Laboratory Data at Discharge: WBC 5.30 K/uL (4.3-10.9) D 08/21/21 05:15 Hgb 11.1 g/dL (12.0-15.0) L 08/21/21 05:15 Hct 33.5 % (36.0-45.0) L 08/21/21 05:15 Plt Count 203 K/uL (152-406) 08/21/21 05:15 Sodium 140 mmol/L (136-145) 08/21/21 05:15 Potassium 3.8 mmol/L (3.5-5.1) 08/21/21 05:15 BUN 10 mg/dL (7-18) 08/21/21 05:15 Creatinine 0.85 mg/dL (0.55-1.3) 08/21/21 05:15 Glucose 243 mg/dL (74-106) H 08/21/21 05:15 Total Bilirubin 0.3 mg/dL (0.2-1.0) 08/21/21 05:15 AST 14 U/L (15-37) L 08/21/21 05:15 ALT 15 U/L (12-78) 08/21/21 05:15 Alkaline Phosphatase 70 U/L (45-117) 08/21/21 05:15 Home Medications: Metformin HCl [Glucophage*] 500 mg PO BIDWM 08/17/21 Pravastatin [Pravachol*] 40 mg PO BEDTIME 08/17/21 Followup: NONE,NONE [Primary Care Provider] -
== END 2021-08-21 11:30 | disposition home health service (06) | DRG 637 ==
LOC: ER 14:45 → ERHOLD 19:29 → 2ND 20:48
PROVIDERS: ADMIT Internal Medicine; ATTEND Internal Medicine
DX: E11.649 Type 2 diabetes mellitus with hypoglycemia without coma (principal); G93.41 Metabolic encephalopathy; I10 Essential (primary) hypertension; Z60.2 Problems related to living alone; Z79.4 Long term (current) use of insulin; Z79.84 Long term (current) use of oral hypoglycemic drugs; Z79.899 Other long term (current) drug therapy; Z90.710 Acquired absence of both cervix and uterus; Z87.891 Personal history of nicotine dependence; Z20.822 Contact with and (suspected) exposure to COVID-19
CPT/HCPCS: 36415; 71045; 80048; 80053; 80061; 80076; 81003; 82550; 82947; 83036; 84439; 84443; 84484; 85025; 93005; 97116; 97161; 97530; 99285; J1650; J7120; U0003